=== PATIENT | male | born 1945 | race Caucasian/White ===

== ENCOUNTER → 2016-11-06 | Day surgery (SDC) | payer MEDICARE, OTHER ==
[~2016-11-06] VITALS: Ht 167.6 cm; Wt 74.0 kg
[~2016-11-06] MED LIST: CADUET 10 MG-11 EACH PO; CLARITIN D 24HR1 TAB PO; DAYPRO600 MG PO; DESYREL100 MG PO; FLONASE 50 MCG/16 GM NOSE; LUTEIN10 MG PO; NORCO 5-325 TA1 EACH PO; VITAMIN D-32000 UNI1 PO
--- NOTE | ~2016-11-06 | OR ---
PATIENT'S NAME: EARLE LEWIS [facility] AGE: 71 Y [address] ROOM: [place] [id number] LOCATION: [facility] [place] ADMIT DATE: 11/06/2016 OR/Procedure Report DISCHARGE DATE: FAMILY PHYSICIAN: José Miguel Aggarwal MD ATTENDING PHYSICIAN: Reddy Ambrosio SURGEON: Reddy Ambrosio MD [facility] [place]: DATE OF PROCEDURE: 11/06/2016 PREOPERATIVE DIAGNOSES: 1. Right proximal ureteral calculus. 2. Gross hematuria. 3. Remote history of urothelial cell carcinoma, treated elsewhere. POSTOPERATIVE DIAGNOSES: 1. Right proximal ureteral calculus. 2. Gross hematuria. 3. Remote history of urothelial cell carcinoma, treated elsewhere. 4. Probable superficial recurrence of urothelial carcinoma. PROCEDURES PERFORMED: 1. Cystoscopy and left retrograde. 2. Right ureteral stone manipulation. 3. Right ureteral stent. 4. Transurethral resection of bladder lesion. 5. Right extracorporeal shock wave lithotripsy. ANESTHESIA: General. INDICATION: This is a 71-year-old gentleman with all of the diagnoses and history outlined above. He had been followed with bladder cancer in [place]. He has not been seen for some time. He recently presented with gross hematuria. By report, it was initially painless. He then developed severe right flank pain. He had a CT scan done of his chest, abdomen, and pelvis in [place]. I reviewed the films. The acute finding is a 6 mm stone in the right proximal ureter. He presents at this time for evaluation and intervention. He certainly could have gross hematuria from his stone, but with his history, we have to be concerned about the urothelial carcinoma. DESCRIPTION OF PROCEDURE: Having obtained his informed consent, the patient was taken first to the cystoscopy suite. He was prepped and draped sterilely and in lithotomy position. General anesthesia was administered. A 21-Turkmen cystoscope was assembled and guided into the urethra. The course of the urethra was unremarkable. The prostate demonstrated some mild trilobar hypertrophy. Moving on into the bladder, I saw suspicious tissue immediately PATIENT'S NAME: EARLE LEWIS [facility] AGE: 71 Y [address] ROOM: [place] [id number] LOCATION: [facility] [place] ADMIT DATE: 11/06/2016 OR/Procedure Report DISCHARGE DATE: FAMILY PHYSICIAN: José Miguel Aggarwal MD ATTENDING PHYSICIAN: Reddy Ambrosio behind the left orifice. It was erythematous and heaped up. With his history, we have to be concerned that this is recurrence. Careful examination of the bladder using the 30- and 70-degree lenses revealed no other abnormalities. I obtained a retrograde on the left side. The upper tract was pristine. There were no filling defects. Calices were finely cupped. I avoided contrast on the right side. Our preliminary survey had been remarkable for the probable stone culprit remaining in the proximal third. Based on its location and size, I am going to proceed with lithotripsy rather than a ureteroscopic approach. Therefore, I did not want to obscure the stone with contrast. The patient was placed in a Trendelenburg position. The stone was irrigated back up into the right renal pelvis. I then passed a guidewire and a 4.8 x 26 cm stent. We had a nice level of placement cystoscopically and fluoroscopically. At that point, I went ahead and manipulated the suspicious lesion. The resectoscope was placed, and using the loop, I took a 1 cm loop through the middle of the area. I then cauterized the periphery. We had good hemostasis. The resected tissue was sent for specimen. The bladder was drained. After a final check for hemostasis, the bladder was drained. The patient was now moved to the lithotripsy suite. The stone was brought in the second focal point of the ellipsoid and fragmentation begun. We gave him 2500 impulses at a maximum kV of 22. We had nice fragmentation by fluoroscopic monitoring. The patient tolerated all this well. Blood loss was negligible. The above- noted tumor was sent for specimen. The patient returned to the recovery area, awake, in stable condition. REDDY AMBROSIO MD SF/modl /[id number] CC: José Miguel Aggarwal MD d: 11/06/16 1812 t: 11/20/16 1011, OPERATIVE SUMMARY
== END ==
LOC: GPOC 11-05 11:00 → GSDC 08:42
PROC: 0TF6XZZ Fragmentation in Right Ureter, External Approach (ICD-10-PCS; principal; 2016-11-06)
PROC: 0TC68ZZ Extirpation of Matter from Right Ureter, Via Natural or Artificial Opening Endoscopic (ICD-10-PCS; 2016-11-06)
PROC: 0T768DZ Dilation of Right Ureter with Intraluminal Device, Via Natural or Artificial Opening Endoscopic (ICD-10-PCS; 2016-11-06)
PROC: 0TBB8ZZ Excision of Bladder, Via Natural or Artificial Opening Endoscopic (ICD-10-PCS; 2016-11-06)
DX: N20.1 Calculus of ureter (principal); E78.5 Hyperlipidemia, unspecified; I10 Essential (primary) hypertension; Z85.51 Personal history of malignant neoplasm of bladder
CPT/HCPCS: C1769; J1100; J1956; J2001; J2405; J7120